=== PATIENT | male | born 2000 | race Caucasian/White ===

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

== ENCOUNTER 2022-01-06 | Inpatient (IN) | payer MEDICAID ==
[~2022-01-06] VITALS: Ht 180.3 cm; Wt 72.7 kg
[2022-01-06 00:51] LABS: HEMATOCRIT 43.1 % (42.0-52.0); MEAN CORPUSCULAR HEMOGLOBIN 30.2 pg (27.0-33.0); MEAN CORPUSCULAR HGB CONC 34.8 g/dl (32.0-36.5); MEAN CORPUSCULAR VOLUME 86.9 fl (80.0-96.0); PLATELET COUNT, AUTOMATED 163 10^3/uL (150-450); RED BLOOD COUNT 4.96 10^6/uL (4.30-6.10); WHITE BLOOD COUNT 6.4 10^3/uL (4.0-10.0)
[2022-01-06 01:28] LABS: ALBUMIN 4.3 GM/DL (3.2-5.2); ALT/SGPT 20 U/L (12-78); BILIRUBIN,DIRECT 0.1 MG/DL (0.0-0.2); BILIRUBIN,TOTAL 0.5 MG/DL (0.2-1.0); BLOOD UREA NITROGEN 11 MG/DL (7-18); CALCIUM LEVEL 8.5 MG/DL (8.5-10.1); CARBON DIOXIDE LEVEL 26 MEQ/L (21-32); CHLORIDE LEVEL 109 MEQ/L (98-107); CREATININE FOR GFR 0.86 MG/DL (0.70-1.30); ETHYL ALCOHOL (ETHANOL) 0.118 % (0.000-0.010); GLUCOSE, FASTING 112 MG/DL (70-100); POTASSIUM SERUM 3.6 MEQ/L (3.5-5.1); SALICYLATE LEVEL 2.1 MG/DL (5.0-30.0); SODIUM LEVEL 142 MEQ/L (136-145); TOTAL PROTEIN 6.9 GM/DL (6.4-8.2)
[2022-01-06 01:33] LABS: RSV AMPLIFICATION NEGATIVE (NEGATIVE)
[2022-01-06 01:40] LABS: ACETAMINOPHEN LEVEL < 2.0 UG/ML (10.0-30.0)
[2022-01-06] MEDS ORDERED: HOME MED LIST COMPLETE! XX SCH (06:25)
[2022-01-06 06:50] LABS: AMPHETAMINES LEVEL URINE NEGATIVE (NEGATIVE); BARBITURATES URINE NEGATIVE (NEGATIVE); BENZODIAZEPINES URINE NEGATIVE (NEGATIVE); CANNABINOIDS URINE POSITIVE (NEGATIVE); COCAINE METABOLITE URINE NEGATIVE (NEGATIVE); METHADONE URINE NEGATIVE (NEGATIVE); OPIATES URINE NEGATIVE (NEGATIVE); PHENCYCLIDINE URINE NEGATIVE (NEGATIVE)
[2022-01-07] MEDS ORDERED: ACETAMINOPHEN TAB 650MG DOSE (2X325MG) PO PRN (18:10)
[2022-01-07] MEDS ORDERED: traZODone 50 MG TAB PO PRN (18:10)
[2022-01-07] MEDS ORDERED: MAALOX 30 ML SUSP *UDC PO PRN (18:10)
[2022-01-07] MEDS ORDERED: MOM 30ML SUSPENSION UDC PO PRN (18:10)
[2022-01-08 02:10] VITALS: BP 154/89
== END 2022-01-08 13:48 | disposition home or self-care (01) | DRG 754 ==
LOC: M ED → M ED INP 01-07 18:10 → M PSY 01-08 02:10
PROVIDERS: ADMIT Psychiatry & Neurology Psychiatry; ATTEND Psychiatry & Neurology Psychiatry
DX: F43.21 Adjustment disorder with depressed mood (principal); R45.851 Suicidal ideations; R03.0 Elevated blood-pressure reading, without diagnosis of hypertension; F10.120 Alcohol abuse with intoxication, uncomplicated; Z20.822 Contact with and (suspected) exposure to COVID-19; Z63.4 Disappearance and death of family member; Z63.0 Problems in relationship with spouse or partner

== ENCOUNTER → 2023-10-18 | Outpatient (REF) | payer MEDICAID, OTHER ==
[~2023-10-18] MED LIST changes: +LIDO15SO8 PO; -LIDO2SOL17 PO
== END ==
LOC: M LAB REF 11:59
PROVIDERS: ATTEND Physician Assistant
DX: B34.9 Viral infection, unspecified (principal)